=== PATIENT | female | born 1955 | race Caucasian/White ===

== ENCOUNTER 2021-01-05 15:41 | Outpatient (CLI) | payer OTHER | END 2021-01-05 15:42 | disposition home or self-care (01) | LOC: NAV RAD 15:41 | PROVIDERS: ATTEND Family Medicine | DX: R06.09 Other forms of dyspnea (principal); R91.8 Other nonspecific abnormal finding of lung field | CPT/HCPCS: 71046 ==

== ENCOUNTER 2021-01-20 14:03 | Outpatient (CLI) | payer OTHER | END 2021-01-20 14:04 | disposition home or self-care (01) | LOC: NAV CT 14:03 | PROVIDERS: ATTEND Family Medicine | DX: R91.8 Other nonspecific abnormal finding of lung field (principal); R59.0 Localized enlarged lymph nodes | CPT/HCPCS: 71250 ==